=== PATIENT | male | born 1990 | race Two or more races ===

== ENCOUNTER 2025-02-14 14:54 | Emergency (ER) | payer MEDICAID, SELFPAY ==
--- NOTE | 2025-02-14 15:19 | EKG_ITS ---
[facility] Test Date: 2025-02-14 Pat Name: NAVDEEP NGUYEN Department: Room: - Gender: Male Programs Manager: : 1990 Requested By: Juan Westbrook (HAWA) Order Number: [id number] Reading MD: Juan Westbrook (SYSTEMS ACCOUNTANT) Measurements Intervals [place] Rate: 66 P: 43 DE: 148 QRS: 6 QRSD: 96 T: 69 QT: 355 QTc: 374 Interpretive Statements SINUS RHYTHM Compared to ECG 07/07/2021 20:08:45 Sinus tachycardia no longer present /store/S0/[id number].pdf
--- NOTE | 2025-02-14 15:19 | XR_ITS ---
EXAMINATION: PA lateral chest 2 views TECHNIQUE: Upright PA lateral chest 2 views INDICATIONS: Chest pain shortness of breath today. FINDINGS: Normal heart size. Lungs are clear. Osseous structures are intact IMPRESSION: No active disease
[2025-02-14 15:20] VITALS: BP 143/80; PULSE 69; RESP 18; TEMP 36.8; O2SAT 99
--- NOTE | 2025-02-14 15:30 | XR_ITS ---
EXAMINATION: Abdomen sonogram limited TECHNIQUE: Limited transabdominal sonographic images of abdomen Date and time: 2024: 1559 hours INDICATIONS: Onset epigastric pain today. FINDINGS: Normal gallbladder. Normal common bile duct 0.3 cm Pancreatic head 3.3 cm Liver 15.7 cm fatty infiltration no focal liver lesions Normal hepatopetal portal venous flow Patent IVC IMPRESSION: Normal gallbladder Liver normal size no focal liver lesions
--- NOTE | 2025-02-14 15:31 | PD.EDRME ---
Rapid Medical Screening Exam RME Arrival date/time: 02/14/25 14:54 34-year-old male presents to the emergency room today complains of chest pain Chief Complaint: Chest Pain Vital signs: Vital Signs Temperature 98.3 F 02/14/25 15:20 Pulse Rate 69 02/14/25 15:20 Respiratory Rate 18 02/14/25 15:20 Blood Pressure 143/80 H 02/14/25 15:20 Pulse Oximetry (%) 99 02/14/25 15:20 Oxygen Delivery Method Room Air 02/14/25 15:20
[2025-02-14 15:35] LABS: Basophils # (Auto) 0.0 Thou/mm3 (0.0-0.2); Basophils % (Auto) 0 % (0-2.5); Eosinophils # (Auto) 0.3 Thou/mm3 (0.0-0.5); Eosinophils % (Auto) 3 % (0-10); Hematocrit 41.5 % (41.0-53.0); Hemoglobin 14.8 g/dL (13.5-16.0); Immature Granulocytes Auto 0.02 Thou/mm3 (0.00-0.00); Lymphocytes # (Auto) 4.8 Thou/mm3 (1.0-4.8); Lymphocytes % (Auto) 49 % (10-50); Mean Corpuscular HGB Conc 35.7 g/dl (31.0-37.0); Mean Corpuscular Hemoglobin 31.0 pg (25.0-35.0); Mean Corpuscular Volume 87 fL (80-100); Monocytes # (Auto) 0.5 Thou/mm3 (0.0-0.8); Monocytes % (Auto) 5 % (0-12); Neutrophils # (Auto) 4.1 Thou/mm3 (1.8-7.7); Neutrophils % (Auto) 42 % (37-80); Nucleated Red Blood Cell # 0.00 Thou/mm3 (0.00-0.00); Nucleated Red Blood Cell % 0 /100 WBC (0); Platelet Count 281 Thou/mm3 (140-440); RDW Standard Deviation 42.0 fL (35.1-43.9); Red Blood Count 4.78 Miln/mm3 (4.50-5.90); White Blood Count 9.7 Thou/mm3 (3.8-10.6)
[2025-02-14 15:53] LABS: Alanine Aminotransferase 26 U/L (10-49); Albumin, Serum 5.0 gm/dL (3.5-5.0); Albumin/Globulin Ratio 1.7 (1.2-2.2); Alkaline Phosphatase 82 U/L (46-116); Anion Gap 12 (7-16); Aspartate Amino Transferase 25 U/L (0-34); BUN/Creatinine Ratio 9 Ratio (12-20); Bilirubin,Total 0.5 mg/dL (0.3-1.2); Blood Urea Nitrogen 10 mg/dL (9-23); Calcium 9.8 mg/dL (8.3-10.6); Calcium (Corrected) 9.8 mg/dL (8.5-10.1); Carbon Dioxide 27.7 mMol/L (20.0-31.0); Chloride 102 mMol/L (98-107); Creatinine (Component) 1.1 mg/dL (0.6-1.3); Globulin 2.9 gm/dL (2.3-3.5); Glucose 88 mg/dL (74-106); Lipase 30 U/L (12-53); Osmolality,Calculated 281 (275-295); Potassium 4.0 mMol/L (3.4-5.1); Sodium 142 mMol/L (136-145); Total Protein 7.9 gm/dL (5.7-8.2); Troponin I < 0.002 ng/mL (0.0-0.045); eGFR > 60 See Note
[2025-02-14 16:51] LABS: Amphetamine/Methamp Scrn,U Negative (Negative); Barbiturate Screen,Urine Negative (Negative); Benzodiazepines Screen,Urine Negative (Negative); Benzoylecgonine Screen, Ur Negative (Negative); Fentanyl Screen,Urine Negative (Negative); Opiate Screen,Urine Negative (Negative); THC Screen,Urine Negative (Negative)
[2025-02-14 19:28] VITALS: BP 128/84; PULSE 70; RESP 16; TEMP 37; O2SAT 100
--- NOTE | 2025-02-14 20:04 | PD.EDCHEST ---
ED Chest Pain RME/HPI General Chief Complaint: Chest Pain Stated Complaint: CHEST PAIN Time Seen by Provider: 02/14/25 15:40 Arrival date/time: 02/14/25 14:54 RME / HPI RME / HPI narrative: 02/14/25 14:54 34-year-old male presents to the emergency room today complains of chest pain --------- Dr. Hsu?s Main ED Evaluation: 34yo male with no significant past medical history presents to the ED for a chief complaint of lower chest/epigastric pain x 2330. Patient states his pain has been constant, but it does not worsen when he takes a deep breath. He does note he does get heartburn . Patient denies any shortness of breath, cough, fever, chills, or any other associated symptoms. Denies any alcohol use. Denies any history of similar symptoms. NKA. Related Data Previous Rx's ?Medication ?Instructions ?Recorded ciprofloxacin HCl 500 mg tablet 500 mg PO BID #14 tabs 12/01/22 (Cipro) hydrocodone 5 mg-acetaminophen 325 1 tab PO Q8H PRN pain #20 tabs 12/01/22 mg tablet Allergies Allergy/AdvReac Type Severity Reaction Status Date / Time No Known Allergies Allergy Verified 02/14/25 14:57 Review of Systems Review of Systems Systems Reviewed: All systems reviewed, normal except as documented Past Medical History Past Medical History NEUROLOGIC: Negative Neurological Disorders or Seizures CARDIAC: Negative Cardiac Disorders or Congestive Heart Failure RESPIRATORY: Negative Chronic Obstructive Pulmonary Disease (COPD) GASTROINTESTINAL: Negative Gastrointestinal Disorders GENITOURINARY: Negative Genitourinary Disorders or Renal Disease MUSCULOSKELETAL: Negative Musculoskeletal Disorders ENDOCRINE: Negative Endocrine Disorders, Diabetes Mellitus Type 1 or Diabetes Mellitus Type 2 HEMATOLOGIC: Negative Blood Disorders OTHER HISTORY: Positive Chicken Pox; Negative Autoimmune Disease, Blood Transfusions, Blood Transfusion Reaction, Anesthesia Reactions, MRSA, Clostridium Difficile or Cancer Family History FAMILY HISTORY: Positive Family Surgery and Family Anesthesia Reaction; Negative Family Psychiatric Problems, Family Respiratory Disorders, Family Cardiac Disorders, Family Gastrointestinal Problems or Family Cancer Social History SMOKING STATUS: Current every day smoker ED Exam Narrative Physical exam: Generally patient is alert in no obvious distress, heart regular rate and rhythm, lungs clear to auscultation equal bilaterally, abdomen soft bowel sounds present nondistended nontender, chest shows no tenderness crepitance or subcu air and no rash Course Course Course Narrative: CXR is ordered for determining the etiology of chest pain. Quality Measures none Orders Category Date Time Status EKG (ED ONLY) *Do not use* NOW Care 02/14/25 15:19 Completed EKG (ED Only) Stat Exams 02/14/25 15:19 Draft US gall bladder Stat Exams 02/14/25 15:30 Completed XR chest 2V Stat Exams 02/14/25 15:19 Completed CBC Stat Lab 02/14/25 15:29 Completed Comprehensive Metabolic Panel Stat Lab 02/14/25 15:29 Completed Drug Screen,Urine Stat Lab 02/14/25 16:20 Completed Lipase Stat Lab 02/14/25 15:29 Completed Troponin I Stat Lab 02/14/25 15:29 Completed Lidocaine 2% Viscous [Xylocaine 2% Viscous] Med 02/14/25 20:20 Once 15 ml PO X1 ONE mg Hyd/Al Hyd/Ney Susp [Maalox Susp] Med 02/14/25 20:20 Once 30 ml PO X1 ONE Vital Signs Vital signs: Vital Signs Temperature 98.3 F 02/14/25 15:20 Pulse Rate 69 02/14/25 15:20 Respiratory Rate 18 02/14/25 15:20 Blood Pressure 143/80 H 02/14/25 15:20 Pulse Oximetry (%) 99 02/14/25 15:20 Oxygen Delivery Method Room Air 02/14/25 15:20 Chest Pain MDM Narrative MDM Narrative:: Scribe Attestation: 02/14/25 Cece Trejo, am scribing for and in the presence of Dr. Hsu. I interpreted all labs. Troponin is not elevated. EKG is nonischemic. Chest x-ray is normal. Gallbladder ultrasound was normal. Patient received a GI cocktail consisting of 30 cc of Mylanta, 15 cc of viscous lidocaine with improvement. Patient is to use [id number] Maalox or Mylanta as needed. Follow-up with his doctor. Return to ER as needed or if condition worsens. Patient's heart score is 0. Patient data External records reviewed:: [facility] previous records (Per chart review, patient was seen here on 07/07/21 for alcohol abuse.) Clinical information provided by:: patient Social determinants that could affect healthcare access:: none Patient has the following chronic illnesses:: none How is presenting disease/condition affected by chronic disease/condition?: no chronic disease Evaluation data The following diagnostics were reviewed and interpreted by me:: lab results, radiology exam(s) and EKG tracing(s) Lab and/or radiology exams considered but not ordered:: none Interpretation Summary: [facility] Report Signed Patient: NAVDEEP NGUYEN Record#: [id number] Birthdate: 1990 Age/Sex: 34 / M Location: [facility] Attending Dr: Ordering Physician: Juan Westbrook NP, NP Date of Service: 02/14/25 Procedure(s): XR chest 2V Accession Number(s): [id number] cc: Dariana GUAMAN)Juan NP; Nicolas Alfaro MD~ EXAMINATION: PA lateral chest 2 views TECHNIQUE: Upright PA lateral chest 2 views INDICATIONS: Chest pain shortness of breath today. FINDINGS: Normal heart size. Lungs are clear. Osseous structures are intact IMPRESSION: No active disease Dictated By: Nicolas Alfaro MD Signed By: <Electronically signed by Nicolas Alfaro MD in OV> 02/14/25 1544 [facility] Report Signed Patient: NAVDEEP NGUYEN. Record#: [id number] Birthdate: 1990 Age/Sex: 34 / M Location: [facility] Attending Dr: Ordering Physician: Juan Westbrook NP, NP Date of Service: 02/14/25 Procedure(s): US gall bladder Accession Number(s): [id number] cc: Juan Westbrook NP, NP; Hamilton Tan MD; Nicolas Alfaro MD~ EXAMINATION: Abdomen sonogram limited TECHNIQUE: Limited transabdominal sonographic images of abdomen Date and time: 415, 5: 1559 hours INDICATIONS: Onset epigastric pain today. FINDINGS: Normal gallbladder. Normal common bile duct 0.3 cm Pancreatic head 3.3 cm Liver 15.7 cm fatty infiltration no focal liver lesions Normal hepatopetal portal venous flow Patent IVC IMPRESSION: Normal gallbladder Liver normal size no focal liver lesions Dictated By: Nicolas Alfaro MD Signed By: <Electronically signed by Nicolas Alfaro MD in OV> 02/14/25 1617 Medications / Prescriptions Medications or Prescriptions considered but not ordered:: none Medication administrations:: see above Consultations Consultation(s) initiated? (list below): No Diagnosis Chest Pain Differential Diagnosis: other (See MDM.) Most likely diagnosis given after review of the tests above:: see clinical impression below Admission Indicated Admission indicated?: not indicated Admission Request Was there a request for admission?: No Disposition Plan Disposition Plan: Discharge Discharge Attestation Discharge Attestation: The patient and all family members were given an opportunity to ask questions and understood the discharge instructions. Discharge instructions specifically effects, indications for sooner follow up or return to the emergency department, and the expected course of current diagnosis. Patient condition: Stable Discharge Plan Plan Patient Disposition: HOME (Self Care) Prescriptions/Referrals Prescriptions/Med Rec: No Action hydrocodone-acetaminophen 5-325 mg tablet 1 tab PO Q8H MDD 4 PRN (Reason: pain) Qty: 20 0RF ciprofloxacin HCl [Cipro] 500 mg tablet 500 mg PO BID Qty: 14 0RF Referrals: Hamilton Tan MD [Primary Care Provider, Family Practice] - In 1 week Problem List Clinical Impression: Chest pain Patient/Caregiver Discharge Instructions Education Materials: ED Chest Pain, Uncertain Cause Additional Instructions: You may use Tylenol and/or ibuprofen as needed for pain. You may also use Maalox or Mylanta [id number] as needed for possible acid reflux. Follow-up with your doctor as needed. Print Language: Mongolian Stand Alone Forms: Sarah Award Info., Patient Portal Info Letter
[2025-02-14] MEDS: MG HYD/AL HYD/SIME (Maalox Reg) SUSP 30 ML UDC PO (20:36)
[2025-02-14] MEDS: LIDOCAINE VISCOUS 2% 15 ML UDC PO (20:36)
== END 2025-02-14 20:38 | disposition home or self-care (01) ==
PROVIDERS: Nurse Practitioner Primary Care; Emergency Provider Emergency Medicine; PCP Family Medicine
DX: R07.9 Chest pain, unspecified (principal)
CPT/HCPCS: 36415; 71046; 76705; 80053; 80307; 83690; 84484; 85025; 93005; 99283; J3490; A9270